=== PATIENT | female | born 1935 | race Caucasian/White ===

== ENCOUNTER 2017-01-01 20:23 | Inpatient (IN) | payer MEDICARE ==
[~2017-01-01] VITALS: Ht 160 cm; Wt 92.5 kg
[~2017-01-01 20:23] MED LIST: ATROVENT INH S2.5 ML INH; CIPRO500 MG PO; METOPROLOL SUCC50 MG PO; NEURONTIN 100100 MG PO; PRILOSEC OTC20 MG PO; TYLENOL 325MG325 MG PO; VENTOLIN/PROVE0.5 ML INH; VITAMIN B-1000 MCG/M PO; ZOLOFT50 MG PO
[2017-01-01 21:55] LABS: RED BLOOD COUNT 3.92 M/UL (4.00-5.10); WHITE BLOOD COUNT 11.3 K/UL (4.5-11.0)
[2017-01-01 22:25] LABS: BUN/CREATININE RATIO 18 (0-10)
[2017-01-02 07:11] LABS: HEMOGLOBIN 8.7 gm/dl (12.3-15.3); RED BLOOD COUNT 3.79 M/UL (4.00-5.10); WHITE BLOOD COUNT 9.1 K/UL (4.5-11.0)
[2017-01-02 07:24] LABS: BUN/CREATININE RATIO 19 (0-10)
[2017-01-02] MEDS ORDERED: FERROUS SULFAT325 M2 PO (11:34)
[2017-01-02] MEDS ORDERED: VITAMIN D 11000 UNIT PO (11:35)
[2017-01-02] MEDS ORDERED: VITAMIN E1000 UNI1 PO (11:36)
[2017-01-02] MEDS ORDERED: ASPIR 8181 MG PO (11:36)
[2017-01-03 05:37] LABS: HEMOGLOBIN 8.9 gm/dl (12.3-15.3); RED BLOOD COUNT 3.92 M/UL (4.00-5.10); WHITE BLOOD COUNT 7.5 K/UL (4.5-11.0)
[2017-01-03 05:56] LABS: BUN/CREATININE RATIO 26 (0-10)
[2017-01-04 06:01] LABS: BUN/CREATININE RATIO 34 (0-10)
[2017-01-04 08:45] LABS: HEMOGLOBIN 8.5 gm/dl (12.3-15.3); RED BLOOD COUNT 3.71 M/UL (4.00-5.10)
[2017-01-04 08:47] LABS: WHITE BLOOD COUNT 13.7 K/UL (4.5-11.0)
--- NOTE | 2017-01-05 13:58 | NUR ---
[facility] ARRIVES FOR PATIENT TRANSPORT TO [facility]. HOME; ALL BELONGINGS WITH PATIENT. LEFT FLOOR VIA STRETCHER [id number].
[2017-03-20] MEDS ORDERED: IPRAT-ALBUT 0.5-3 ML INH (22:31)
[2017-03-20] MEDS ORDERED: BUSPAR 5MG TABLE5 MG PO (22:32)
[2017-03-20] MEDS ORDERED: LASIX20 MG PO (22:33)
[2017-03-20] MEDS ORDERED: K-DUR TAB 10 M10 MEQ PO (22:35)
[2017-03-20] MEDS ORDERED: VITAMIN B-121000 MC3 PO (22:41)
[2017-03-20] MEDS ORDERED: PERFOROMIS20 MCG/21 HHN (22:43)
[2017-03-20] MEDS ORDERED: TYLENOL 650 MG650 MG PR (22:46)
== END 2017-01-05 14:00 | DRG 196 ==
LOC: ER1 20:23 → MED SURG 4 23:53 → ZEROF 23:53 → MED SURG 4 01-02 10:42
PROVIDERS: Emergency Medicine; Student in an Organized Health Care Education/Training Program; ADMIT Family Medicine
DX: J84.112 Idiopathic pulmonary fibrosis (principal); J96.21 Acute and chronic respiratory failure with hypoxia; J44.1 Chronic obstructive pulmonary disease with (acute) exacerbation; N39.0 Urinary tract infection, site not specified; B96.20 Unspecified Escherichia coli [E. coli] as the cause of diseases classified elsewhere; D63.8 Anemia in other chronic diseases classified elsewhere; K80.20 Calculus of gallbladder without cholecystitis without obstruction; E11.9 Type 2 diabetes mellitus without complications; I10 Essential (primary) hypertension; M81.0 Age-related osteoporosis without current pathological fracture; J45.909 Unspecified asthma, uncomplicated; K21.9 Gastro-esophageal reflux disease without esophagitis; K44.9 Diaphragmatic hernia without obstruction or gangrene; R07.9 Chest pain, unspecified; K57.90 Diverticulosis of intestine, part unspecified, without perforation or abscess without bleeding; I07.1 Rheumatic tricuspid insufficiency; N81.10 Cystocele, unspecified; M79.7 Fibromyalgia; E53.8 Deficiency of other specified B group vitamins; E55.9 Vitamin D deficiency, unspecified; K42.9 Umbilical hernia without obstruction or gangrene; E66.9 Obesity, unspecified; Z68.36 Body mass index [BMI] 36.0-36.9, adult; F41.1 Generalized anxiety disorder; F32.9 Major depressive disorder, single episode, unspecified; Z79.82 Long term (current) use of aspirin; Z79.1 Long term (current) use of non-steroidal anti-inflammatories (NSAID); Z99.81 Dependence on supplemental oxygen; Z79.899 Other long term (current) drug therapy; Z88.0 Allergy status to penicillin; Z88.2 Allergy status to sulfonamides; Z88.8 Allergy status to other drugs, medicaments and biological substances; Z90.710 Acquired absence of both cervix and uterus; Z98.890 Other specified postprocedural states; Z82.3 Family history of stroke; Z80.3 Family history of malignant neoplasm of breast; Z83.3 Family history of diabetes mellitus; Z82.49 Family history of ischemic heart disease and other diseases of the circulatory system; Z80.49 Family history of malignant neoplasm of other genital organs
CPT/HCPCS: ECHO; 36415; 36600; 71010; 71020; 76705; 80048; 80053; 81001; 82550; 82553; 82607; 82728; 82803; 82962; 83540; 83550; 83874; 83880; 84443; 84484; 85025; 85027; 87040; 87070; 87077; 87086; 87186; 87205; 93005; 93306; 94640; 94664; 96374; 96375; 97530; 97535; 99285; G0378; J0456; J0696; J1956; J2920; J7050; Q0162

== ENCOUNTER → 2017-01-24 | Outpatient (CLI) | payer MEDICARE ==
[~2017-01-24] MED LIST changes: +ASPIR 8181 MG PO; +BUSPAR 5MG TABLE5 MG PO; +FERROUS SULFAT325 M2 PO; +IPRAT-ALBUT 0.5-3 ML INH; +K-DUR TAB 10 M10 MEQ PO; +LASIX20 MG PO; +PERFOROMIS20 MCG/21 HHN; +TYLENOL 650 MG650 MG PR; +VITAMIN B-121000 MC3 PO; +VITAMIN D 11000 UNIT PO; +VITAMIN E1000 UNI1 PO
[2017-01-24 17:51] LABS: BUN/CREATININE RATIO 18 (0-10)
== END ==
LOC: LAB 17:10
PROVIDERS: Emergency Medicine
DX: J44.9 Chronic obstructive pulmonary disease, unspecified (principal)
CPT/HCPCS: 80048